=== PATIENT | female | born 1960 | race Caucasian/White ===

== ENCOUNTER 2016-05-13 08:01 | Day surgery (SDC) | payer OTHER ==
[~2016-05-13] VITALS: Ht 157.5 cm; Wt 84.9 kg
[2016-05-13 08:43] VITALS: Ht 157.5 cm; Wt 84.9 kg
[2016-05-13] MEDS ORDERED: ATENOLOL (08:53)
[2016-05-13] MEDS ORDERED: ASPIRIN PO (08:53)
[2016-05-13] MEDS ORDERED: PRAVASTATIN (08:53)
[2016-05-13] MEDS ORDERED: AMLODIPINE (08:53)
[2016-05-13 09:14] VITALS: BP 135/81; PULSE 82; RESP 24
[2016-05-13] MEDS ORDERED: MIDAZOLAM 1 MG/ML 2 ML INJ ONE ×2 (09:54)
[2016-05-13] MEDS ORDERED: FENTAnyl 50 MCG/ML VIAL ONE (09:54)
[2016-05-13 10:15] VITALS: BP 113/66; PULSE 62; RESP 19
--- NOTE | 2016-05-14 02:53 | GILP ---
DATE OF PROCEDURE: NAME OF PROCEDURES: Colonoscopy and biopsy. SURGEON: Dino Bartlett MD PREOPERATIVE DIAGNOSIS: Screening colonoscopy. POSTOPERATIVE DIAGNOSES: 1. Colonoscopy all the way to the cecum. 2. Small transverse colon polyp was removed. 3. Diverticulosis of the colon. 4. Internal hemorrhoids. INDICATION FOR THE PROCEDURE: Ms. Marjorie Handley is a 56-year-old female patient who was schedule d for screening colonoscopy. The procedure and possible complications were well explained to the patient. The patient understood and consented to the procedure. DESCRIPTION OF PROCEDURE: Under the influence of fentanyl and Versed, the colonoscope was carefully introduced in the rectum and under direct vision, it was advanced all the way to the ileocecal valv e. The patient had a redundant colon and the tip of the cecum could not be reached. FINDINGS: The patient had a small transverse colon polyp and it was removed using the biopsy forcep s. She was noted to have diverticulosis of the colon. She also had internal hemorrhoids. She tolerated the procedure very well and there was no complication from the procedure. At the end of the procedure, she was awake with stable vital signs and she was discharged home to the care of h er family. IMPRESSION: 1. Colonoscopy to ileocecal valve. 2. Small transverse colon polyp was removed. 3. Diverticulosis of the colon. 4. Internal hemorrhoids. PLAN: 1. Await histopathology report. 2. Screening colonoscopy in 5 years. Dictated By: DINO MATTHEWS/NTS Conf#: [id number] DID#: [id number]
== END 2016-05-13 11:11 | disposition home or self-care (01) ==
LOC: GIL 08:01
PROVIDERS: ATTEND Internal Medicine Gastroenterology
DX: Z12.11 Encounter for screening for malignant neoplasm of colon (principal); D12.3 Benign neoplasm of transverse colon; K57.90 Diverticulosis of intestine, part unspecified, without perforation or abscess without bleeding; K64.8 Other hemorrhoids; I10 Essential (primary) hypertension
CPT/HCPCS: 45380; 88305; J2250; J3010; Z7610